=== PATIENT | female | born 1995 | race Hispanic/Latino ===

== ENCOUNTER 2025-07-11 20:37 | Emergency (ER) | payer MEDICAID, SELFPAY ==
[2025-07-11 20:52] VITALS: BP 105/74; PULSE 79; RESP 16; TEMP 36.6; O2SAT 97; BMI 31.8
--- NOTE | 2025-07-11 22:27 | ED.BURNSMOKE ---
HPI - Burn/Smoke Inhalation General Chief complaint: Burn/Smoke Inhalation Stated complaint: burned foot with mashed potatoes Time Seen by Provider: 07/11/25 22:27 Source: patient, RN notes reviewed and old records reviewed Mode of arrival: Ambulatory Limitations: no limitations History of Present Illness HPI Narrative: 29-year-old female with no reported medical issues presents with complaint of a burn to her left foot over the 4th and 5th toes and a very small area over the dorsum. She has blisters on the 4th and 5th toe, no blister but there is a little bit of redness discoloration over about a cm sized area on the dorsum. There was no circumferential involvement patient states last night she was making mashed potatoes, she was taking them out of the oven when she accidentally dropped it and tried to catch it with the foot and it landed on her foot causing a burn. She states the blisters popped up overnight so she came for evaluation. She states there little bit painful. She has not noticed any redness or other changes just the areas where a blister with the only areas that she has not any pain. She states her last tetanus was in 2016. She denies any drug allergies. She denies any daily medications. Related Data Home Medications ?Medication ?Instructions ?Recorded ?Confirmed No Known Home Medications 07/11/25 07/11/25 Allergies Allergy/AdvReac Type Severity Reaction Status Date / Time No Known Drug Allergies Allergy Verified 07/11/25 20:51 Review of Systems Review of Systems ROS Unobtainable: All systems reviewed & are unremarkable except as noted in HPI and below Patient History Social History Smoking Status: Never smoker Smoking Status: Never smoker Exam Narrative Exam Narrative: GENERAL: Alert and oriented x three, female in mild distress HEENT: Head normocephalic, atraumatic, EOMI, pupils reactive, face symmetric, moist mucous membranes NECK: Supple, full range of motion CARDIOVASCULAR: Regular rate and rhythm without murmurs, rubs or gallops. RESPIRATORY: Breath sounds equal bilaterally, no wheezes rales or rhonchi. ABDOMEN: Soft, nontender. Normoactive bowel sounds all 4 quadrants. No guarding or rebound, rigidity, no mass EXTREMITIES: Normal range of motion, no clubbing or edema. Neurovascularly intact. Patient has erythema with raised blistered over the dorsum of the 4th and 5th toe, there was no circumferential involvement or involvement in between the toes appreciated. Patient also has a about a cm by 0.5 cm oblong shaped area of burn without blister but does have discoloration with hyperpigmentation and erythema over the dorsum of the midfoot. Patient's cap refills less than 2 seconds in all 5 toes. Sensation to light touch throughout. Patient does not have any other areas of burn, lacerations or cut appreciated. NEUROLOGICAL: Cranial nerves II through XII grossly intact. Moving all extremities SKIN: Warm, dry, no petechiae, no rashes or lesions otherwise noted. Initial Vital Signs Initial Vital Signs: Vital Signs Temperature 97.9 F 07/11/25 20:52 Pulse Rate 79 07/11/25 20:52 Respiratory Rate 16 07/11/25 20:52 Blood Pressure 105/74 07/11/25 20:52 Pulse Oximetry 97 07/11/25 20:52 Oxygen Delivery Method Room Air 07/11/25 20:52 Course Orders Ordered: Discontinued Medications Diphtheria/Tetanus/Acell Pertussis (Tet,Diph,Pertuss(Acell),Vac/Pf 0.5 Ml Syringe) 0.5 ml IM .ONCE ONE Stop: 07/11/25 22:34 Last Admin: 07/11/25 23:21 Dose: 0.5 ml Documented By: AMY Silver Sulfadiazine (Silver Sulfadiazine 1% Cream 25 Gm) 1 applic TOP NOW ONE Stop: 07/11/25 22:34 Last Admin: 07/11/25 23:24 Dose: 1 applic Documented By: AMY Vital Signs Vital signs: Vital Signs - 8 hr 07/11/25 20:52 Temperature 97.9 F Pulse Rate 79 Respiratory Rate 16 Blood Pressure 105/74 Pulse Oximetry 97 Oxygen Delivery Method Room Air MDM - Burn/Smoke Inhalation MDM Narrative Medical decision making narrative: Patient has a small area of second-degree burn on her foot, noncircumferential includes the 4th and 5th dorsum of the toes and a small area in the dorsum midfoot. Blisters were debrided, Silvadene and nonstick were applied. Patient had bandage. Discussed return precautions all questions answered. Tetanus was updated. Discharge Plan Departure Patient Disposition: Home Clinical Impression: Second degree burn of fifth toe of foot Qualifiers: Encounter type: initial encounter Laterality: right Qualified Code(s): T25.231A - Burn of second degree of right toe(s) (nail), initial encounter Second degree burn of fourth toe of foot Qualifiers: Encounter type: initial encounter Laterality: right Qualified Code(s): T25.231A - Burn of second degree of right toe(s) (nail), initial encounter Second degree burn of left foot Qualifiers: Encounter type: initial encounter Qualified Code(s): T25.222A - Burn of second degree of left foot, initial encounter Instructions: DI for [place] Activity Restrictions/Additional Instructions: Wound Care: Keep wound(s) clean and dry. Wash daily with soap and water only, make sure to wash the area with a washcloth to debride the burn daily. Do not use over the counter products (alcohol or peroxide)on the wounds unless instructed by a physician. You can use Silvadene to the affected areas daily with dressing changes. If wound condition worsens (increased/expanding redness, developing fluid blisters, or worsening pain), either contact your doctor for an urgent re-assessment , or return to the Emergency Department. Return if fever greater than 100.4 Fahrenheit, increased swelling, increasing pain or worsening symptoms such as increased discharge or spreading redness. Prescriptions: No Action No Known Home Medications Stand Alone Forms: Patient Portal/API
[2025-07-11] MEDS: TET,DIPH,PERTUSS(ACELL),VAC/PF 0.5 ML SYRINGE IM (23:21)
[2025-07-11] MEDS: SILVER SULFADIAZINE 1% CREAM 25 GM 1 APPLIC TOP (23:24)
[2025-07-11 23:49] VITALS: BP 119/76; PULSE 68; RESP 16; O2SAT 99
== END 2025-07-11 23:52 | disposition home or self-care (01) ==
PROVIDERS: Emergency Provider Emergency Medicine
DX: T25.231A Burn of second degree of right toe(s) (nail), initial encounter (principal); T25.222A Burn of second degree of left foot, initial encounter; X10.1XXA Contact with hot food, initial encounter; Z23 Encounter for immunization
CPT/HCPCS: 90471; 99283; 90715